=== PATIENT | male | born 1975 | race Caucasian/White ===

== ENCOUNTER 2018-12-13 06:15 | Day surgery (SDC) | payer OTHER ==
[~2018-12-13] VITALS: Ht 175.3 cm; Wt 92.1 kg
[~2018-12-13 06:15] MED LIST: CYMBALTA60 MG PO; FLOMAX0.4 MG PO; LEVOTHYROXINE75 MCG PO; MIRTAZAPINE15 MG PO; OMEPRAZOLE20 MG PO
--- NOTE | 2018-12-13 07:35 | NUR ---
PT IS ALERT, ORIENTED AND HAS EOCI GUARDS PRESENT. FIRST SCOPE FOR PT, SEEMS ALITTLE ANXIOUS, FRIENDLY AND POLITE. GOOD VISIT, DECLINED PRAYER AT THIS TIME WILL FOLLWO NEEDED
--- NOTE | 2018-12-13 08:27 | NUR ---
12/13/18 0827 Yoselyn Glover 0811 PT ARRIVED IN PACU AWAKE WITH NO C/O'S. ABD SOFT. TRANSPORT GUARDS AT BEDSIDE. 0820 PT SITTING UP IN BED SIPPING ON WATER.
--- NOTE | 2018-12-14 07:29 | OR ---
[facility] [address], [place] [address] Signed DATE OF OPERATION: 12/13/2018 SURGEON: Meg Wells MD PREOPERATIVE DIAGNOSES: 1. Maternal aunt with colon cancer in her 50s. 2. Maternal uncles x2 with colon cancer in their 40s. 3. Maternal grandfather with colon cancer in his 70s. 4. Probable blood in stools. POSTOPERATIVE DIAGNOSIS: Minimal internal hemorrhoids. PROCEDURE: Colonoscopy without biopsy. ESTIMATED BLOOD LOSS: None. INDICATIONS: Royer is a 43-year-old gentleman from our [facility]. He was asked to see me for his initial colonoscopy. He explained his family history of colon cancer as listed above. Also, he says intermittently he sees blood in his stools. Otherwise, Royer has no lower GI complaints. I explained to Royer the nature of a colonoscopy in detail. He understands that test along with its risks including, but not limited to gas, bloating, crampy abdominal pain, bleeding, perforation requiring surgery, and missed diagnosis. He also understands the need for IV conscious sedation. Also because of his family history, he will need a colonoscopy every 5 years, the rest of his life. He had expressed understanding and wished to proceed. DESCRIPTION OF PROCEDURE: Royer was taken into our endoscopy suite and placed in the left lateral decubitus position. He was given a total of 9 mg of Versed and 200 mcg of fentanyl to cover the case. A digital rectal exam was performed. He has minimal if any external hemorrhoids. Although his prostate is swollen and indurated for his age, I can see that he is on Flomax. No dominant nodules, although, the left is more prominent than the right. The adult colonoscope was then introduced and advanced quite readily into the cecum without difficulty. His prep was good. There were several areas of liquid stool, which was suctioned out. The scope was slowly withdrawn. We could easily see the appendiceal orifice and the ileocecal valve. We had taken several pictures for photodocumentation. Electronically Signed By: MEG WELLS MD 12/14/18 0729 PATIENT NAME: ROYER JOSÉ OPERATIVE REPORT DATE OF : 79 REPORT #: [id number] PHYSICIAN: MEG WELLS MD PCP: ERNESTO JUAN REPORT IS CONFIDENTIAL AND NOT TO BE RELEASED WITHOUT AUTHORIZATION [facility] [address] [place], [place] [address] Signed We saw no pathology throughout his entire colon or rectum. Upon retroflexion of the scope, he has some very small internal hemorrhoid columns. After this, the gas was suctioned out and colonoscope removed. Royer tolerated the procedure quite well. RECOMMENDATIONS: I will see Royer in the office in 1-2 months to review all this with him and I will remind him that he needs a colonoscopy every 5 years. MD JAZMYNE Mckeon/JOSEL /[id number] cc: MD Meg Boone MD Copies: MORAIMA CHANEY MD, ANDREW L MD ~ Electronically Signed By: MEG WELLS MD 12/14/18 0729 PATIENT NAME: ROYER JOSÉ OPERATIVE REPORT DATE OF : 79 REPORT #: [id number] PHYSICIAN: MEG WELLS MD PCP: ERNESTO JUAN REPORT IS CONFIDENTIAL AND NOT TO BE RELEASED WITHOUT AUTHORIZATION
== END 2018-12-13 08:35 | disposition home or self-care (01) ==
LOC: OPS 06:15 → DS 06:15 → OPS 06:45
PROVIDERS: Colon & Rectal Surgery
PROC: 0DJD8ZZ Inspection of Lower Intestinal Tract, Via Natural or Artificial Opening Endoscopic (ICD-10-PCS; principal; 2018-12-13 06:45)
DX: K64.8 Other hemorrhoids (principal); Z80.0 Family history of malignant neoplasm of digestive organs; Z79.899 Other long term (current) drug therapy
CPT/HCPCS: 99153; G0500; J2250; J3010; J7120